=== PATIENT | female | born 1985 | race Caucasian/White ===

== ENCOUNTER → 2017-02-26 | Outpatient (REF) | payer OTHER ==
[~2017-02-26] MED LIST: /MOM400 PO; ACET50TA PO; IBUP100SUS PO; IBUP60TA PO; No Historical Meds; PRENTAB8 PO; VICO5TAB OR
[2017-02-26 14:45] LABS: ALBUMIN 4.3 GM/DL (3.2-5.2); ALBUMIN/GLOBULIN RATIO 1.39 (1.00-1.93); ALKALINE PHOSPHATASE 68 U/L (45-117); ALT/SGPT 28 U/L (12-78); ANION GAP 8 MEQ/L (8-16); AST/SGOT 13 U/L (15-37); BILIRUBIN,TOTAL 0.8 MG/DL (0.2-1.0); BLOOD UREA NITROGEN 9 MG/DL (7-18); CALCIUM LEVEL 8.8 MG/DL (8.5-10.1); CARBON DIOXIDE LEVEL 27 MEQ/L (21-32); CHLORIDE LEVEL 105 MEQ/L (98-107); CHOLESTEROL LEVEL 164 MG/DL (<200); CREATININE FOR GFR 0.74 MG/DL (0.55-1.02); GLOMERULAR FILTRATION RATE > 60.0 (>60); GLUCOSE, FASTING 75 MG/DL (70-105); POTASSIUM SERUM 4.2 MEQ/L (3.5-5.1); SODIUM LEVEL 140 MEQ/L (136-145); TOTAL PROTEIN 7.4 GM/DL (6.4-8.2); TRIGLYCERIDES LEVEL 84 MG/DL (<150)
== END ==
LOC: M LAB REF 14:03
PROVIDERS: ATTEND Family Medicine Addiction Medicine
DX: F41.8 Other specified anxiety disorders (principal)

== ENCOUNTER → 2018-05-21 | Outpatient (REF) | payer MEDICAID, OTHER ==
[~2018-05-21] MED LIST changes: -ACET50TA PO; +MAPA500T2 PO
[2018-05-21 14:12] LABS: HEMOGLOBIN 11.9 g/dl (12.0-15.5); MEAN CORPUSCULAR HEMOGLOBIN 32.8 pg (27.0-33.0); MEAN CORPUSCULAR VOLUME 93.7 fl (80.0-96.0); PLATELET COUNT, AUTOMATED 286 10^3/uL (150-450); RED BLOOD COUNT 3.63 10^6/uL (4.00-5.40); WHITE BLOOD COUNT 10.5 10^3/uL (4.0-10.0)
[2018-05-21 15:39] LABS: HCG, SERUM QUANTITATIVE 11147 MIU/ML; HEPATITIS C VIRUS ABY INDEX 0.1 INDEX (<0.8); HIV 1&2 SCREEN CENTAUR NEGATIVE (NEGATIVE); RUBELLA IgG QUALITATIVE IMMUNE (IMMUNE)
== END ==
LOC: M LAB REF 13:17
PROVIDERS: ATTEND Obstetrics & Gynecology
DX: O36.80X0 Pregnancy with inconclusive fetal viability, not applicable or unspecified (principal)

== ENCOUNTER → 2018-07-23 | Outpatient (CLI) | payer OTHER ==
[2018-07-23 14:34] LABS: HEMATOCRIT 33.1 % (36.0-47.0); HEMOGLOBIN 11.2 g/dl (12.0-15.5); MEAN CORPUSCULAR HEMOGLOBIN 32.5 pg (27.0-33.0); MEAN CORPUSCULAR HGB CONC 33.8 g/dl (32.0-36.5); MEAN CORPUSCULAR VOLUME 95.9 fl (80.0-96.0); PLATELET COUNT, AUTOMATED 230 10^3/uL (150-450); RED BLOOD COUNT 3.45 10^6/uL (4.00-5.40); WHITE BLOOD COUNT 10.1 10^3/uL (4.0-10.0)
== END ==
LOC: M LAB 13:02
PROVIDERS: ATTEND Obstetrics & Gynecology
DX: Z34.82 Encounter for supervision of other normal pregnancy, second trimester (principal); Z36.89 Encounter for other specified antenatal screening

== ENCOUNTER → 2018-07-26 | Outpatient (CLI) | payer OTHER | LOC: M LAB 12:45 | PROVIDERS: ATTEND Obstetrics & Gynecology | DX: O36.012 Maternal care for anti-D [Rh] antibodies, second trimester (principal); Z3A.00 Weeks of gestation of pregnancy not specified ==

== ENCOUNTER → 2018-09-23 | Outpatient (REF) | payer OTHER ==
[~2018-09-23] MED LIST changes: -/MOM400 PO; +IBUP100S44 PO; -IBUP100SUS PO; +IBUP600T42 PO; -IBUP60TA PO; +MILK10SU PO
== END ==
LOC: M LAB REF 12:28
PROVIDERS: ATTEND Obstetrics & Gynecology
DX: Z34.83 Encounter for supervision of other normal pregnancy, third trimester (principal); Z3A.00 Weeks of gestation of pregnancy not specified

== ENCOUNTER 2018-10-22 10:37 | Inpatient (IN) | payer OTHER ==
[2018-10-22] VITALS (15 sets, daily range): BP systolic 102–131; BP diastolic 55–72
[~2018-10-22] VITALS: Ht 172.7 cm; Wt 106.3 kg
[2018-10-22] MEDS ORDERED: MAPA500T2 PO (11:20)
[2018-10-22] MEDS ORDERED: TUMS500C PO (11:20)
[2018-10-22] MEDS ORDERED: LR 1,000 ML IV SCH (11:36)
[2018-10-22] MEDS ORDERED: LACTATED RINGER'S 1000 ML IV STA (11:36)
[2018-10-22] MEDS ORDERED: miSOPROStol 50 MCG 1/2 TAB (S0191) As Ordered ONE (12:37)
[2018-10-22] MEDS ORDERED: miSOPROStol 50 MCG 1/2 TAB (S0191) PV ONE (12:45)
[2018-10-22 12:54] LABS: HEMATOCRIT 34.3 % (36.0-47.0); HEMOGLOBIN 11.4 g/dl (12.0-15.5); MEAN CORPUSCULAR HEMOGLOBIN 31.2 pg (27.0-33.0); MEAN CORPUSCULAR HGB CONC 33.2 g/dl (32.0-36.5); PLATELET COUNT, AUTOMATED 249 10^3/uL (150-450); RED BLOOD COUNT 3.65 10^6/uL (4.00-5.40); WHITE BLOOD COUNT 10.2 10^3/uL (4.0-10.0)
[2018-10-22] MEDS ORDERED: OXYTOCIN DRIP 30 UNITS in APPROPRIATE DILUENT 1 EA IV SCH ×2 (17:45→21:14)
[2018-10-22] MEDS ORDERED: OXYTOCIN 30 UNITS IN 0.9% NaCl 500ML IV BAG (J2590) As Ordered ONE (17:49)
[2018-10-22] MEDS ORDERED: FENTANYL 2MCG/ML ROPIVACAINE 0.2% IN 0.9% NACL 100ML IVBAG As Ordered ONE (19:14)
[2018-10-22] MEDS ORDERED: LACTATED RINGER'S 1000 ML IV PRN (20:45)
[2018-10-22] MEDS ORDERED: ePHEDrine SULFATE 25 MG/5 ML(5MG/ML) SYRINGE IV PRN (20:45)
[2018-10-22] MEDS ORDERED: REFRIGERATOR IV KEYS XX PRN (20:45)
[2018-10-22] MEDS ORDERED: EPIDURAL/PCA KEYS XX PRN (20:45)
[2018-10-22] MEDS ORDERED: ONDANSETRON 4MG/2ML VIAL (J2405) IV PRN (20:45)
[2018-10-22] MEDS ORDERED: FENTANYL/ROPIVACAINE/NACL BAG 100 ML EPIDURAL SCH (20:45)
[2018-10-22] MEDS ORDERED: EPIDURAL COMMENT XX SCH (20:45)
[2018-10-22] MEDS ORDERED: diphenhydrAMINE INJ 50MG/ML VIAL (J1200) IV PRN (20:45)
[2018-10-22] MEDS ORDERED: NALOXONE INJ 0.4 MG/1 ML VIAL (J2310) IV PRN (20:45)
[2018-10-22 21:03] LABS: CORD GAS ABE V 0.2; CORD GAS HCO3 V 22.3 MEQ/L; CORD GAS O2 SAT V 72.3 %; CORD GAS PCO2 V 29.1 mmHg; CORD GAS PH V 7.502 UNITS; CORD GAS SBC V 24.1 MEQ/L; CORD GAS TCO2 V 23.2 MEQ/L
[2018-10-22 21:06] LABS: CORD GAS ABE A -0.4; CORD GAS HCO3 A 24.1 MEQ/L; CORD GAS O2 SAT A 29.7 %; CORD GAS PH A 7.408 UNITS; CORD GAS PO2 A 14.5 mmHg; CORD GAS SBC A 22.6 MEQ/L; CORD GAS TCO2 A 25.3 MEQ/L
[2018-10-22] MEDS ORDERED: DOCUSATE SODIUM 100 MG CAP PO PRN (21:15)
[2018-10-22] MEDS ORDERED: IBUPROFEN 800 MG TAB PO PRN (21:15)
[2018-10-22] MEDS ORDERED: IBUPROFEN 600 MG TAB PO PRN (21:15)
[2018-10-22] MEDS ORDERED: ACETAMINOPHEN TAB 650MG DOSE (2X325MG) PO PRN (21:15)
[2018-10-22] MEDS ORDERED: ACETAMINOPHEN 500 MG TAB PO PRN (21:15)
[2018-10-22] MEDS ORDERED: MEASLES,MUMPS,RUBELLA VACCINE INJ (MMR-II) (90707) SC SCH (21:15)
[2018-10-22] MEDS ORDERED: ANUSOL HC CREAM 30GM TOP PRN (21:15)
[2018-10-22] MEDS ORDERED: RHOGAM 300 MCG (1500 IU) INJ (J2790) IM SCH (21:15)
[2018-10-22] MEDS ORDERED: DIBUCAINE 1% OINTMENT 30GM TOP PRN (21:15)
--- NOTE | 2018-10-22 21:38 | DN ---
DATE OF DELIVERY: 10/22/2018 Alethea is a 33-year-old female 4, para 3-0-0-3 who was admitted at 40-2/7 weeks gestation for an induction. She underwent one Cytotec followed by artificial rupture of membranes and Pitocin induction. She then progressed to fully dilated fairly quickly after an epidural. Delivered a live male in left occiput anterior position over an intact perineum. scores 8 and 9. weight 7 pounds 1 ounce. Placenta delivered spontaneously intact. Three-vessel cord. Estimated blood loss 300 mL. Both mother and baby in stable condition.
--- NOTE | 2018-10-23 05:17 | HPE ---
DATE OF ADMISSION: 10/22/2018 Alethea is a 33-year-old female 4, para 3-0-0-3 who is admitted at 40-2/7 weeks gestation for an induction. Upon admission no bleeding, no leakage of fluid. Good movement. Her record was reviewed which was essentially unremarkable. LABS: Blood type is A negative, rubella immune, hepatitis negative, HIV negative, GC chlamydia negative, 1-hour sugar testing was within normal limit. Her GBS is negative. PAST MEDICAL HISTORY: Denies. PAST SURGICAL HISTORY: Cholecystectomy in 2009. FAMILY HISTORY: Significant for hypertension and deep venous thromboses (DVTs). SOCIAL HISTORY: The patient denies any alcohol or drug use. She denies smoking. PHYSICAL EXAMINATION: General: Obese female in no acute distress. Abdomen: Soft, nontender, nondistended. Extremities: No clubbing, cyanosis or edema. Vaginal exam: 1.5 cm dilated, 60%. Fetus at -3 station in a vertex position. Tracing reviewed, category one tracing. ASSESSMENT: Intrauterine at 40-2/7 weeks gestation being admitted for an induction. PLAN: Admit the patient to labor and delivery. Routine labs sent. Induction process discussed with the patient in detail. Will proceed with a Cytotec induction followed by Pitocin and all artificial rupture of membranes.
[2018-10-23 05:46] VITALS: BP 110/54
[2018-10-23] MEDS: PRENATAL VITAMINS CHEWABLE TABLET PO SCH (08:19)
[2018-10-23] MEDS ORDERED: BUPIVACAINE/EPIN 0.25% 30 ML VIAL As Ordered ONE (15:06)
[2018-10-23] MEDS ORDERED: LIDOCAINE 2% INJ 100 MG/5 ML SDV (FOR ANES.) As Ordered ONE (16:55)
[2018-10-23] MEDS ORDERED: PROPOFOL 200 MG/20 ML VIAL As Ordered ONE ×3 (16:55→18:25)
[2018-10-23] MEDS ORDERED: ROCURONIUM BROMIDE 50 MG/5 ML VIAL As Ordered ONE (16:56)
[2018-10-23] MEDS ORDERED: SUCCINYLCHOLINE 100 MG/5 ML SYRINGE (J0330) As Ordered ONE (16:56)
[2018-10-23] MEDS ORDERED: dexameTHASONE 4 MG/ML 1ML VIAL (J1100) As Ordered ONE (16:57)
[2018-10-23] MEDS ORDERED: ONDANSETRON 4MG/2ML VIAL (J2405) As Ordered ONE ×2 (17:01→19:20)
[2018-10-23] MEDS ORDERED: fentaNYL 100 MCG/2 ML INJECTION (J3010) As Ordered ONE (17:14)
[2018-10-23] MEDS ORDERED: MIDAZOLAM INJ 2 MG/2 ML VIAL (J2250) As Ordered ONE (17:14)
[2018-10-23] MEDS ORDERED: CHLOROPROCAINE 2 % INJ PRES.FREE 20 ML VIAL (J2400) As Ordered ONE (17:30)
[2018-10-23] MEDS ORDERED: PHENYLephrine HCL 500 MCG/5 ML (100MCG/ML) SYRINGE (J2370) As Ordered ONE (18:20)
[2018-10-23] MEDS ORDERED: LIDOCAINE 2% JELLY 6 ML SYRINGE As Ordered ONE (18:42)
--- NOTE | 2018-10-23 19:04 | RO ---
DATE OF PROCEDURE: 10/23/2018 Alethea is a 33-year-old female who is multiparity and desires a permanent tubal sterilization. She is status post a vaginal delivery yesterday and wanted to proceed with a tubal ligation after extensive counseling a decision was made to take her to the operating room for minilaparotomy bilateral salpingectomy. PREOPERATIVE DIAGNOSES: 1. Multiparity, desires permanent tubal sterilization. 2. Post vaginal delivery. POSTOPERATIVE DIAGNOSES: 1. Multiparity, desires permanent tubal sterilization. 2. Post vaginal delivery. PROCEDURE: 1. Minilaparotomy 2. Bilateral salpingectomy. ANESTHESIA: Spinal. SURGEON: Dr. Jane COMPLICATIONS: None. ESTIMATED BLOOD LOSS: Less than 10 mL. FINDINGS: Normal-appearing tubes. SPECIMENS SENT TO THE LAB: Bilateral fallopian tubes. PROCEDURE: After obtaining informed consent the patient was taken to the operating room where spinal anesthetic was found to be adequate. She was then draped and prepped usual sterile fashion in the supine position. Straight catheter bladder was performed for approximately 200 mL of clear urine. We then made a circumferential incision around the umbilicus approximately 1-1/2 inches in this was brought down to the fascia. Fascia was incised in midline fashion and carried through laterally. At this point the peritoneum was identified and peritoneal cavity was entered bluntly. [employer] retractors were used. We then swept the omentum over the left fallopian tube. The fallopian tube was identified with the fimbriated end. At this point using 3-0 Vicryl ties the cornual area of the tube was sutured ligated. We then used the Bovie and the entire tube was then removed. The opposite to the tube was then drop back in the abdomen. Good hemostasis noted. The opposite side was done in a similar fashion. Both segments of both tubes were sent to pathology for final diagnosis. After replacing the tubes back in the abdomen I then close the peritoneum using 2-0 Vicryl and the fascia was closed using 0 Vicryl. The skin was closed in subcuticular fashion using 4-0 Vicryl. 0.25% Marcaine was placed at the operative site for postoperative pain. Dermabond placed the patient tolerated procedure well. She was then transferred to recovery room in stable condition.
[2018-10-23] MEDS ORDERED: PERCOCET 5MG/325MG TAB PO PRN (19:15)
[2018-10-23] MEDS ORDERED: ONDANSETRON 4MG/2ML VIAL (J2405) IV PRN (19:15)
[2018-10-23] MEDS ORDERED: LR 1,000 ML IV SCH (19:15)
[2018-10-23] MEDS ORDERED: fentaNYL 100 MCG/2 ML INJECTION (J3010) IV PRN (19:15)
[2018-10-23] MEDS ORDERED: PERCOCET 5MG/325MG TAB As Ordered ONE (19:19)
[2018-10-23 20:13] VITALS: BP 119/67
[2018-10-23 20:35] VITALS: BP 121/82
[2018-10-23 21:35] VITALS: BP 108/64
[2018-10-23 22:35] VITALS: BP 116/58
[2018-10-23 23:35] VITALS: BP 110/68
[2018-10-24 00:35] VITALS: BP 98/62
[2018-10-24 06:00] VITALS: BP 102/64
[2018-10-24] MEDS: PRENATAL VITAMINS CHEWABLE TABLET PO SCH (08:17)
[2018-10-24] MEDS ORDERED: IBUP-1114 PO ×2 (13:36)
== END 2018-10-24 14:30 | disposition home or self-care (01) | DRG 541 ==
LOC: M LDI 10:37 → M OBS 22:27
PROVIDERS: ADMIT Obstetrics & Gynecology; ATTEND Obstetrics & Gynecology
PROC: 10E0XZZ Delivery of Products of Conception, External Approach (ICD-10-PCS; principal; 2018-10-22)
PROC: 3E033VJ Introduction of Other Hormone into Peripheral Vein, Percutaneous Approach (ICD-10-PCS; 2018-10-22)
PROC: 10907ZC Drainage of Amniotic Fluid, Therapeutic from Products of Conception, Via Natural or Artificial Opening (ICD-10-PCS; 2018-10-22)
PROC: 0UB74ZZ Excision of Bilateral Fallopian Tubes, Percutaneous Endoscopic Approach (ICD-10-PCS; 2018-10-23)
DX: O48.0 Post-term pregnancy (principal); Z30.2 Encounter for sterilization; Z37.0 Single live birth; Z3A.40 40 weeks gestation of pregnancy

== ENCOUNTER → 2019-03-25 | Outpatient (REF) | payer OTHER, MEDICAID ==
[~2019-03-25] MED LIST changes: +IBUP-1114 PO; +TUMS500C PO
[2019-03-25 13:33] LABS: BASO # 0.1 10^3/uL (0.0-0.2); EOS # 0.3 10^3/uL (0.0-0.5); EOS % 4.1 % (0.0-3.0); LYMPH # 2.9 10^3/uL (1.5-5.0); LYMPH % 36.8 % (24.0-44.0); MEAN CORPUSCULAR HGB CONC 32.6 g/dl (32.0-36.5); MEAN CORPUSCULAR VOLUME 92.3 fl (80.0-96.0); MONO # 0.4 10^3/uL (0.0-0.8); MONO % 5.7 % (0.0-5.0); NEUTROPHILS # 4.1 10^3/uL (1.5-8.5); NEUTROPHILS % 52.3 % (36.0-66.0); PLATELET COUNT, AUTOMATED 318 10^3/uL (150-450); RED BLOOD COUNT 4.66 10^6/uL (4.00-5.40); WHITE BLOOD COUNT 7.8 10^3/uL (4.0-10.0)
[2019-03-25 13:57] LABS: HEMOGLOBIN A1c 5.3 %
[2019-03-25 14:07] LABS: ALBUMIN 4.2 GM/DL (3.2-5.2); ALT/SGPT 26 U/L (12-78); BILIRUBIN,TOTAL 0.6 MG/DL (0.2-1.0); BLOOD UREA NITROGEN 12 MG/DL (7-18); CALCIUM LEVEL 9.5 MG/DL (8.5-10.1); CARBON DIOXIDE LEVEL 27 MEQ/L (21-32); CHLORIDE LEVEL 103 MEQ/L (98-107); CHOLESTEROL LEVEL 156 MG/DL (<200); CHOLESTEROL RISK RATIO 2.516 (<5); CREATININE FOR GFR 0.78 MG/DL (0.55-1.30); FREE T4 0.93 NG/DL (0.76-1.46); GLOMERULAR FILTRATION RATE > 60.0 (>60); GLUCOSE, FASTING 91 MG/DL (70-100); HDL CHOLESTEROL 62 MG/DL (>40); LDL CHOLESTEROL 81 MG/DL (<100); NON-HDL-C 94 MG/DL; POTASSIUM SERUM 4.2 MEQ/L (3.5-5.1); SODIUM LEVEL 138 MEQ/L (136-145); TOTAL PROTEIN 7.4 GM/DL (6.4-8.2); TRIGLYCERIDES LEVEL 67 MG/DL (<150)
== END ==
LOC: M LAB REF 12:16
PROVIDERS: ATTEND Family Medicine
DX: Z13.228 Encounter for screening for other metabolic disorders (principal)

== ENCOUNTER → 2020-03-04 | Outpatient (REF) | payer OTHER ==
[2020-03-04 16:43] LABS: BASO # 0.1 10^3/uL (0.0-0.2); BASO % 1.1 % (0.0-1.0); EOS # 0.2 10^3/uL (0.0-0.5); EOS % 2.9 % (0.0-3.0); HEMATOCRIT 43.2 % (36.0-47.0); HEMOGLOBIN 13.9 g/dl (12.0-15.5); LYMPH % 27.2 % (24.0-44.0); MEAN CORPUSCULAR HEMOGLOBIN 30.1 pg (27.0-33.0); MEAN CORPUSCULAR HGB CONC 32.2 g/dl (32.0-36.5); MEAN CORPUSCULAR VOLUME 93.5 fl (80.0-96.0); MONO # 0.4 10^3/uL (0.0-0.8); MONO % 5.9 % (0.0-5.0); NEUTROPHILS # 4.7 10^3/uL (1.5-8.5); NEUTROPHILS % 62.6 % (36.0-66.0); PLATELET COUNT, AUTOMATED 272 10^3/uL (150-450); RED BLOOD COUNT 4.62 10^6/uL (4.00-5.40); WHITE BLOOD COUNT 7.5 10^3/uL (4.0-10.0)
[2020-03-04 16:57] LABS: ALBUMIN 4.1 GM/DL (3.2-5.2); ALT/SGPT 38 U/L (12-78); BILIRUBIN,TOTAL 0.5 MG/DL (0.2-1.0); BLOOD UREA NITROGEN 9 MG/DL (7-18); CALCIUM LEVEL 9.1 MG/DL (8.5-10.1); CARBON DIOXIDE LEVEL 28 MEQ/L (21-32); CHLORIDE LEVEL 103 MEQ/L (98-107); CHOLESTEROL LEVEL 149 MG/DL (<200); CHOLESTEROL RISK RATIO 2.483 (<5); CREATININE FOR GFR 0.79 MG/DL (0.55-1.30); GLOMERULAR FILTRATION RATE > 60.0 (>60); GLUCOSE, FASTING 91 MG/DL (70-100); HDL CHOLESTEROL 60 MG/DL (>40); LDL CHOLESTEROL 77 MG/DL (<100); NON-HDL-C 89 MG/DL; POTASSIUM SERUM 4.4 MEQ/L (3.5-5.1); SODIUM LEVEL 139 MEQ/L (136-145); TOTAL PROTEIN 7.4 GM/DL (6.4-8.2); TRIGLYCERIDES LEVEL 59 MG/DL (<150)
[2020-03-07 10:38] LABS: TOTAL 25(OH) VITAMIN D 51.5 NG/ML (30.0-100.0)
== END ==
LOC: M LAB REF 15:50
PROVIDERS: ATTEND Physician Assistant
DX: Z68.33 Body mass index [BMI] 33.0-33.9, adult (principal); E66.9 Obesity, unspecified; Z72.0 Tobacco use